=== PATIENT | male | born 2000 | race Hispanic/Latino ===

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

== ENCOUNTER 2022-05-16 19:13 | Emergency (ER) | payer SELFPAY ==
[2022-05-16] MEDS ORDERED: IBUPROFEN 400 MG TAB ONE (20:03)
--- NOTE | 2022-05-16 20:35 | RAD REPORT ---
EXAM DESCRIPTION: RAD - Chest Single View - 05/16/2022 8:26 pm CLINICAL HISTORY: CHEST PAIN Chest pain. COMPARISON: Chest Single View dated 05/13/2017; CHEST PA AND LAT 2 VIEW dated 11/02/2014 FINDINGS: Portable technique limits examination quality. The lungs are grossly clear. The heart is normal in size. No displaced fractures. IMPRESSION: No acute intrathoracic process suspected.
--- NOTE | 2022-05-16 20:52 | ER ---
Nurse's Notes [facility] Name: Justus Jenkins Age: 22 yrs Sex: Male : 2000 Arrival Date: 05/16/2022 Time: 19:23 Bed 2 Private MD: Diagnosis: Chest wall pain Presentation: 05/16 19:28 Chief complaint: Intermittent sharp substernal chest pain x 2 days. Pain does not hb radiate. Pain is worse with movement and with deep inspiration. Denies injury/SOB/nausea. Coronavirus screen: At this time, the client does not indicate any symptoms associated with coronavirus-19. Ebola Screen: No symptoms or risks identified at this time. Risk Assessment: Do you want to hurt yourself or someone else? Patient reports no desire to harm self or others. Onset of symptoms was May 15, 2022. 19:28 Method Of Arrival: Ambulatory hb 19:28 Acuity: EL 3 hb 21:05 Initial Sepsis Screen: Does the patient meet any 2 criteria? No. Patient's initial aa9 sepsis screen is negative. Does the patient have a suspected source of infection? No. Patient's initial sepsis screen is negative. Historical: - Allergies: 19:30 No Known Drug Allergies; hb - Home Meds: 19:30 None [Active]; hb - PMHx: 19:30 None; hb - PSHx: 19:30 None; hb - Immunization history:: Adult Immunizations up to date. - Social history:: Smoking status: Patient denies any tobacco usage or history of. Screenin:04 Abuse screen: Denies threats or abuse. Denies injuries from another. Nutritional as6 screening: No deficits noted. Tuberculosis screening: No symptoms or risk factors identified. Fall Risk None identified. Assessment: 20:03 General: Appears in no apparent distress. Behavior is calm, cooperative. Pain: as6 Complains of pain in mid-sternal area Pain currently is 9 out of 10 on a pain scale. Quality of pain is described as sharp, shooting, stabbing. Neuro: Level of Consciousness is awake, alert. Cardiovascular: Reports chest pain, Chest pain is described as Pain is 9 out of 10 on a pain scale. quality is sharp, stabbing. Respiratory: Respiratory effort is even, unlabored. Vital Signs: 19:28 BP 131 / 76; Pulse 70; Resp 16; Temp 98; Pulse Ox 100% on R/A; Weight 72.57 kg; Height hb 5 ft. 5 in. (165.10 cm); Pain 9/10; 20:00 BP 122 / 84; Pulse 74; Resp 16 S; Pulse Ox 99% on R/A; aa9 20:15 BP 117 / 90; Pulse 62; Resp 17 S; Pulse Ox 99% on R/A; aa9 20:30 BP 116 / 82; Pulse 66; Resp 16 S; Pulse Ox 98% on R/A; aa9 20:53 BP 134 / 83; Pulse 75; Resp 16 S; Pulse Ox 99% on R/A; aa9 19:28 Body Mass Index 26.63 (72.57 kg, 165.10 cm) hb ED Course: 19:23 Patient arrived in ED. mr 19:30 Triage completed. hb 19:30 Arm band placed on. hb 19:33 Alexandria Lam MD is Attending Physician. sd2 19:38 Archie Arenas, RN is Primary Nurse. as6 20:28 XRAY Chest (1 view) In Process Unspecified. EDMS 20:59 No provider procedures requiring assistance completed. Patient did not have IV access aa9 during this emergency room visit. 21:05 Patient has correct armband on for positive identification. Bed in low position. Side aa9 rails up X2. Adult w/ patient. Administered Medications: 20:02 Drug: Ibuprofen 800 mg Route: PO; as6 21:05 Follow up: Response: No adverse reaction aa9 Medication: 21:05 VIS not applicable for this client. aa9 Outcome: 20:51 Discharge ordered by . sd2 21:04 Discharged to home ambulatory, with family. aa9 21:04 Condition: stable 21:04 Discharge instructions given to patient, family, Instructed on discharge instructions, follow up and referral plans. Demonstrated understanding of instructions, follow-up care. 21:08 Patient left the ED. aa9 Signatures: Dispatcher [employer] [facility] WaliRosalindaterNunu, RN MENDY Archie Arenas, MENDY BROOKE as6 Alexandria Lam MD MD sd2 Cheli Davis RN RN aa9
--- NOTE | 2022-05-16 20:52 | EDPHYS ---
Physician Documentation [facility] Name: Justus Jenkins Age: 22 yrs Sex: Male : 2000 Arrival Date: 05/16/2022 Time: 19:23 Bed 2 Private MD: ED Physician Alexandria Lam HPI: 05/16 19:51 This 22 yrs old Male presents to ER via Ambulatory with complaints of Chest sd2 Pain. 19:51 22-year-old male with no known past medical history presents with chief complaint of sd2 midsternal chest pain that started yesterday. He reports it is worse when he leans over to pear picker things. He localizes it to a small circular area in his lower sternal area. He denies any shortness of breath, nausea, vomiting or diaphoresis. He has no known prior cardiac history. He reports the pain worsens when he stretches the area or takes a deep breath. No known recent travel or leg edema. No history of blood clots.. Historical: - Allergies: 19:30 No Known Drug Allergies; hb - Home Meds: 19:30 None [Active]; hb - PMHx: 19:30 None; hb - PSHx: 19:30 None; hb - Immunization history:: Adult Immunizations up to date. - Social history:: Smoking status: Patient denies any tobacco usage or history of. ROS: 19:52 Constitutional: Negative for fever, chills, and weight loss, Eyes: Negative for injury, sd2 pain, redness, and discharge, Cardiovascular: Positive for chest pain, Negative for palpitations, and edema, Respiratory: Negative for shortness of breath, cough, wheezing. Abdomen/GI: Negative for abdominal pain, nausea, vomiting, diarrhea. Back: Negative for injury and pain, MS/Extremity: Negative for injury and deformity, Skin: Negative for injury, rash, and discoloration, Neuro: Negative for headache, numbness and tingling. Exam: 19:52 Constitutional: This is a well developed, well nourished patient who is awake, alert, sd2 and in no acute distress. Head/Face: Normocephalic, atraumatic. Eyes: EOMI, normal conjunctiva bilaterally Chest/axilla: Normal chest wall appearance and motion. Tenderness to palpation at the L costosternal joints around ribs 7-9 with no associated crepitus Cardiovascular: Regular rate and rhythm with a normal S1 and S2. No gallops, murmurs, or rubs. 2+ distal pulses. Respiratory: Lungs have equal breath sounds bilaterally, clear to auscultation and percussion. No rales, rhonchi or wheezes noted. No increased work of breathing, no retractions or nasal flaring. Abdomen/GI: Soft, non-tender, with normal bowel sounds. No guarding or rebound. No evidence of tenderness throughout. Skin: Warm, dry with normal turgor. Normal color with no rashes, no lesions, and no evidence of cellulitis. MS/ Extremity: Pulses equal, no cyanosis. Neurovascular intact. Full, normal range of motion. Ambulatory without difficulty. Psych: Awake, alert, with orientation to person, place and time. Behavior, mood, and affect are within normal limits. 20:02 ECG was reviewed by the Attending Physician. NSR, rate 81, no STEMI criteria or ST-T sd2 wave changes Vital Signs: 19:28 BP 131 / 76; Pulse 70; Resp 16; Temp 98; Pulse Ox 100% on R/A; Weight 72.57 kg; Height hb 5 ft. 5 in. (165.10 cm); Pain 9/10; 20:00 BP 122 / 84; Pulse 74; Resp 16 S; Pulse Ox 99% on R/A; aa9 20:15 BP 117 / 90; Pulse 62; Resp 17 S; Pulse Ox 99% on R/A; aa9 20:30 BP 116 / 82; Pulse 66; Resp 16 S; Pulse Ox 98% on R/A; aa9 20:53 BP 134 / 83; Pulse 75; Resp 16 S; Pulse Ox 99% on R/A; aa9 19:28 Body Mass Index 26.63 (72.57 kg, 165.10 cm) hb MDM: 19:44 Patient medically screened. sd2 19:52 Differential diagnosis: Differential diagnosis includes but is not limited to: ACS, sd2 DVT/PE, pneumothorax, dissection, musculoskeletal, anxiety, anemia, electrolyte abnormality, pneumonia, CHF, COPD among others. Data reviewed: vital signs, nurses notes, EKG, radiologic studies. 20:49 Counseling: I had a detailed discussion with the patient and/or guardian regarding: the sd2 historical points, exam findings, and any diagnostic results supporting the discharge/admit diagnosis, radiology results, the need for outpatient follow up, to return to the emergency department if symptoms worsen or persist or if there are any questions or concerns that arise at home. Medical screen evaluation completed. EMTALA emergency medical condition absent. Special discussion: Based on the patient's history, exam, and Dx evaluation, there is no indication for emergent intervention or inpatient Tx. It is understood by the patient/guardian that if the Sx's persist or worsen they need to return immediately for re-evaluation. ED course: EKG with no abnormalities or ischemic changes. CXR with no acute process. VSS. No events noted on telemetry. Suspect MSK etiology or costochondritis based upon reproducible pinpoint area of patient's pain. Advised NSAIDs and continued supportive care. Pt verbalizes understanding of discharge plan and strict return precautions.. 05/16 19:36 Order name: XRAY Chest (1 view); Complete Time: 20:43 sd2 05/16 19:36 Order name: EKG - Nurse/Tech; Complete Time: 20:02 sd2 Administered Medications: 20:02 Drug: Ibuprofen 800 mg Route: PO; as6 21:05 Follow up: Response: No adverse reaction aa9 Disposition Summary: 05/16/22 20:51 Discharge Ordered Location: Home sd2 Problem: new sd2 Symptoms: have improved sd2 Condition: Stable sd2 Diagnosis - Chest wall pain sd2 Followup: sd2 - With: Private Physician - When: 2 - 3 days - Reason: Recheck today's complaints, Continuance of care, Re-evaluation by your physician Discharge Instructions: - Discharge Summary Sheet sd2 - Chest Wall Pain sd2 - Costochondritis sd2 Forms: - Medication Reconciliation Form sd2 - Thank You Letter sd2 - Antibiotic Education sd2 - Prescription Opioid Use sd2 Signatures: Dispatcher [employer] EDMS Nunu Nunez RN RN Archie Arenas RN RN as6 Alexandria Lam MD MD sd2 Cheli Davis RN aa9
[2022-05-18 06:42] VITALS: TEMP 98
[2022-05-18 06:51] VITALS: BP 134/83; O2SAT 99
--- NOTE | 2022-05-19 17:30 | EKG ---
Test Date: 2022-05-16 Test Time: 19:54:47 Engagement Specialist: MEASUREMENT RESULTS: Intervals: Rate: 81 ID: [id number] QRSD: 100 QT: 358 QTc: 415 [place]: P: 62 ID: [id number] QRS: 41 T: 42 INTERPRETIVE STATEMENTS: Normal sinus rhythm Normal ECG Compared to ECG 05/13/2017 02:09:43 Sinus arrhythmia no longer present Electronically Signed On 05-19-22 17:27:43 CDT by Cornel Cohen
== END 2022-05-16 21:08 | disposition home or self-care (01) ==
LOC: ER 19:13
DX: R07.89 Other chest pain (principal)
CPT/HCPCS: 71045; 93005; 99283

== ENCOUNTER 2024-03-31 09:58 | Emergency (ER) | payer OTHER, SELFPAY ==
[2024-03-31] MEDS ORDERED: ACETAMINOPHEN 500 MG TAB ONE (10:45)
[2024-03-31] MEDS ORDERED: CLINDAMYCIN 900MG/D5W 900 MG/50 ML IVPB IV ONE (10:46)
[2024-03-31] MEDS ORDERED: CEFTRIAXONE 2000 MG/VIAL ONE (10:46)
[2024-03-31] MEDS ORDERED: dexAMETHasone 10 MG/ML VIAL ONE (10:46)
[2024-03-31] MEDS ORDERED: NA CHLORIDE 0.9% 50 ML ONE (10:47)
[2024-03-31 10:55] LABS: Absolute Lymphocytes (CBC) 0.7 K/uL (0.7-4.9); Absolute Monocytes 1.6 K/uL (0.1-1.3); Absolute Neutrophil 20.7 K/uL (1.8-8.0); Basophils % 0.2 % (0-1.3); Hematocrit 47.5 % (39.6-49.0); Hemoglobin 15.7 g/dL (13.6-17.9); Lymphocytes % 2.8 % (15.3-44.8); MCHC 33.1 g/dL (32.0-36.0); MCV 87.6 fL (80-100); MPV 8.7 fL (7.6-11.3); Monocytes % 7.1 % (3.3-12.3); Neutrophils % 89.9 % (41.7-73.7); Platelets 194 thou/uL (152-406); RBC Red Blood Cell Count 5.43 M/uL (4.33-5.43); Red Cell Distribution Width 12.9 % (12.1-15.2)
--- NOTE | 2024-03-31 11:02 | RAD REPORT ---
EXAM DESCRIPTION: CT - Soft Tissue Neck W/Contr CLINICAL HISTORY: PAIN COMPARISON: No comparisons TECHNIQUE All CT scans are performed using dose optimization technique as appropriate and may includ e automated exposure control or mA/KV adjustment according to patient size. FINDINGS: Enlarged bilateral palatine tonsils with striations and one 12 mm fluid collection at the left tonsillar fossa. No significant airway narrowing. Fossa Rosenmller are normal. Parapharyngeal fat triangles are symmetric. Tongue base structures are normal. Epiglottis and aryepiglottic folds are normal. Piriform sinuses are well aerated. The vocal cords are normal in appearance. Salivary glands are normal in appearance. Upper lung abel are clear. Included intracranial contents are unremarkable. Bilateral cervical chain lymphadenopathy is present. This is likely reactive in a patient of this age . IMPRESSION: Tonsillitis with small 12 mm left tonsillar abscess and bilateral phlegmon. Patent airwa y. Enlarged cervical chain lymph nodes which are likely reactive.
[2024-03-31 11:25] LABS: Albumin 4.1 g/dL (3.4-5.0); Anion Gap 12.3 mEq/L (5.0-15.0); Bilirubin Total 1.1 mg/dL (0.2-1.0); Globulin 4.2 g/dL (2.3-3.5); Potassium 3.3 mEq/L (3.5-5.1); Protein, Total 8.3 g/dL (6.4-8.2)
[2024-03-31 11:46] LABS: SARS-CoV-2 Antigen CONTROL BLUE LINE VIS/BG OK; SARS-CoV-2 Antigen Rapid Res Negative (Negative)
[2024-03-31 12:03] LABS: Monoscreen POS (NEG)
[2024-03-31 12:24] LABS: Blood Morphology Comment NOT SEEN (NOT SEEN); Platelet Estimate ADEQ; White Blood Cell Scan OK (OK)
[2024-03-31] MEDS ORDERED: ONDANSETRON 4 MG/2 ML VIAL ONE (12:32)
[2024-03-31] MEDS ORDERED: FENTANYL CITR 100 MCG/2 ML ONE (12:33)
--- NOTE | 2024-03-31 13:13 | EDPHYS ---
Physician Documentation [facility] Name: Justus Jenkins Age: 24 yrs Sex: Male : 2000 Arrival Date: 03/31/2024 Time: 09:58 Bed 17 Private MD: ED Physician Sumanth Higuera HPI: 03/31 10:36 This 24 yrs old Male presents to ER via Ambulatory with complaints of Ear pepe Pain, Sore Throat. Historical: - Allergies: 10: No Known Allergies; hb - Home Meds: 10: None [Active]; hb - PMHx: 10: None; hb - PSHx: 10:09 None; hb - Immunization history:: Adult Immunizations up to date. - Infectious Disease History:: Denies. - Social history:: Smoking status: Patient reports the use of cigarette tobacco products. ROS: 10:49 Constitutional: Negative for fever, chills, and weight loss, Eyes: Negative for injury, pepe pain, redness, and discharge, Neck: Negative for injury, pain, and swelling, Cardiovascular: Negative for chest pain, palpitations, and edema, Respiratory: Negative for shortness of breath, cough, wheezing, and pleuritic chest pain, Abdomen/GI: Negative for abdominal pain, nausea, vomiting, diarrhea, and constipation, Back: Negative for injury and pain, : Negative for injury, bleeding, discharge, and swelling, MS/Extremity: Negative for injury and deformity, Skin: Negative for injury, rash, and discoloration, Neuro: Negative for headache, weakness, numbness, tingling, and seizure, Psych: Negative for depression, anxiety, suicide ideation, homicidal ideation, and hallucinations, Allergy/Immunology: Negative for hives, rash, and allergies, Endocrine: Negative for neck swelling, polydipsia, polyuria, polyphagia, and marked weight changes, Hematologic/Lymphatic: Negative for swollen nodes, abnormal bleeding, and unusual bruising, 10:49 ENT: Positive for ear pain, rhinorrhea, sore throat, Exam: 10:49 Constitutional: This is a well developed, well nourished patient who is awake, alert, pepe and in no acute distress. Head/Face: Normocephalic, atraumatic. Eyes: Pupils equal round and reactive to light, extra-ocular motions intact. Lids and lashes normal. Conjunctiva and sclera are non-icteric and not injected. Cornea within normal limits. Periorbital areas with no swelling, redness, or edema. Neck: Trachea midline, no thyromegaly or masses palpated, and no cervical lymphadenopathy. Supple, full range of motion without nuchal rigidity, or vertebral point tenderness. No Meningismus. Chest/axilla: Normal chest wall appearance and motion. Nontender with no deformity. No lesions are appreciated. Cardiovascular: Regular rate and rhythm with a normal S1 and S2. No gallops, murmurs, or rubs. Normal PMI, no JVD. No pulse deficits. Respiratory: Lungs have equal breath sounds bilaterally, clear to auscultation and percussion. No rales, rhonchi or wheezes noted. No increased work of breathing, no retractions or nasal flaring. Abdomen/GI: Soft, non-tender, with normal bowel sounds. No distension or tympany. No guarding or rebound. No evidence of tenderness throughout. Back: No spinal tenderness. No costovertebral tenderness. Full range of motion. Male : Normal genitalia with no discharge or lesions. Skin: Warm, dry with normal turgor. Normal color with no rashes, no lesions, and no evidence of cellulitis. MS/ Extremity: Pulses equal, no cyanosis. Neurovascular intact. Full, normal range of motion. Neuro: Awake and alert, GCS 15, oriented to person, place, time, and situation. Cranial nerves II-XII grossly intact. Motor strength 5/5 in all extremities. Sensory grossly intact. Cerebellar exam normal. Normal gait. Psych: Awake, alert, with orientation to person, place and time. Behavior, mood, and affect are within normal limits. 10:49 ENT: Posterior pharynx: Airway: no evidence of obstruction, Tonsils: bilaterally enlarged, with erythema, with exudate, Uvula: swelling, that is mild, erythema, that is mild, exudate, that is mild, 11:45 Head/face: Noted is mild trismus noted on exam. pepe Vital Signs: 10:07 BP 147 / 85; Pulse 103; Resp 16; Temp 99.5(O); Pulse Ox 100% on R/A; Weight 72.57 kg; hb Height 5 ft. 6 in. ; Pain 8/10; 12:47 BP 130 / 81; Pulse 91; Resp 17; Pulse Ox 98% on R/A; rs5 13:40 BP 127 / 77; Pulse 80; Resp 17; Pulse Ox 98% on R/A; rs5 10:07 Body Mass Index 25.82 (72.57 kg, 167.64 cm) hb 10:07 Pain Scale: Adult hb MDM: 10:02 Patient medically screened. [facility] 10:52 Differential diagnosis: group A strep tonsillitis, influenza, laryngitis, lymphoma, pepe mononucleosis, peritonsillar abscess neisseria gonorrheoeae pharangitis, radiation tonsillitis, upper respiratory infection, uvulitis, viral syndrome. Data reviewed: vital signs, nurses notes, lab test result(s), radiologic studies, plain films. Consideration of Admission/Observation Escalation of care including admission/observation considered. I considered the following discharge prescriptions or medication management in the emergency department Medications were administered in the Emergency Department. See MAR. Independent interpretation of the following test(s) in the Emergency Department CT Scan: My interpretation is ct soft tissue neck. Historians other than the Patient: pt well informed. Care significantly affected by the following chronic conditions: neg. Counseling: I had a detailed discussion with the patient and/or guardian regarding the historical points, exam findings, and any diagnostic results supporting the discharge/admit diagnosis, lab results, radiology results, the need for outpatient follow up, for definitive care, an ENT specialist, a family practitioner. 03/31 10:25 Order name: Strep [facility] 03/31 10:25 Order name: CBC with Diff; Complete Time: 13:10 [facility] 03/31 10:25 Order name: Comprehensive Metabolic Panel; Complete Time: 11:38 [facility] 03/31 10:25 Order name: Flu; Complete Time: 12:07 [facility] 03/31 10:25 Order name: [place] Screen Profile; Complete Time: 12:07 [facility] 03/31 10:25 Order name: SARS RAPID; Complete Time: 12:07 [facility] 03/31 11:01 Order name: CBC Smear Scan; Complete Time: 13:10 [facility] 03/31 11:51 Order name: Throat Culture [facility] 03/31 10:25 Order name: CT Soft Tissue Neck W/contr; Complete Time: 11:38 [facility] 03/31 13:11 Order name: PO challenge: gatorade; Complete Time: 13:22 [facility] Administered Medications: 10:59 Drug: Decadron - Dexamethasone IVP 10 mg IVP once Route: IVP; Site: right antecubital; rs5 11:20 Follow up: Response: No adverse reaction rs5 10:59 Drug: Acetaminophen PO 1000 mg PO once Route: PO; rs5 12:01 Follow up: Response: No adverse reaction; Pain is decreased rs5 11:00 Drug: Rocephin IV 2 grams IV at per protocol once; Given slow IV push per pharmarcy rs5 instructions Route: IV; Rate: per protocol; Site: right antecubital; 11:20 Follow up: Response: No adverse reaction rs5 11:00 Drug: Clindamycin IVPB 900 mg IVPB once over 30 mins; (mix in 50 mL) Route: IVPB; rs5 Infused Over: 30 mins; Site: right antecubital; 11:20 Follow up: Response: No adverse reaction rs5 12:40 Drug: Ondansetron IVP 4 mg IVP once; over 2 minutes Route: IVP; Site: right antecubital;rs5 12:48 Follow up: Response: No adverse reaction rs5 12:41 Drug: fentaNYL (PF) IVP 50 mcg IVP once Route: IVP; Site: right antecubital; rs5 12:48 Follow up: Response: No adverse reaction; Pain is decreased rs5 13:11 Drug: Potassium PO Effervescent Tablet 25 mEq PO once; dissolve in 4 ounces of water or rs5 juice Route: PO; 13:11 Drug: Clindamycin PO 300 mg PO once Route: PO; rs5 Disposition Summary: 03/31/24 13:12 Discharge Ordered Notes: Location: Home pepe Problem: new pepe Symptoms: have improved pepe Condition: Stable pepe Diagnosis - Acute tonsillitis, unspecified pepe - Fever, unspecified pepe - Peritonsillar abscess pepe - Infectious mononucleosis, unspecified with other complication pepe - Hypokalemia pepe - Elevated white blood cell count pepe Followup: pepe - With: Private Physician - When: 2 - 3 days - Reason: Recheck today's complaints, Continuance of care, Re-evaluation by your physician Followup: pepe - With: Alexandria Brewer MD - When: 2 - 3 days - Reason: Recheck today's complaints, Continuance of care, Re-evaluation by your physician Discharge Instructions: - Discharge Summary Sheet pepe - Potassium Content of Foods pepe - Fever, Adult pepe - Infectious Mononucleosis pepe - Peritonsillar Abscess pepe - Tonsillitis pepe - Tonsillitis, [id number] pepe - Peritonsillar Abscess, [id number] pepe - Peritonsillar Cellulitis pepe - Hypokalemia pepe - Mononucleosis Rapid Test [facility] Forms: - Medication Reconciliation Form pepe - Antibiotic Education pepe - Prescription Opioid Use pepe - Patient Portal Instructions pepe - Leadership Thank You Letter [facility] - Work release form ld1 Prescriptions: - dexamethasone 4 mg Oral tablet - take 1 tablet ORAL route every 12 hours; 4 tablet; Refills: 0, Product [facility] Selection Permitted - Clindamycin HCl 300 mg Oral Capsule - take 1 capsule ORAL route every 6 hours for 10 days; 40 capsule; Refills: 0, [facility] Product Selection Permitted - Ibuprofen 600 mg Oral Tablet - take 1 tablet ORAL route every 6 hours As needed take with food; 30 tablet; [facility] Refills: 0, Product Selection Permitted Signatures: Dispatcher [employer] EDSumanth Ott MD MD [facility] Nunu Nunez, MENDY RN Drew Meyers RN RN rs5 Corrections: (The following items were deleted from the chart) 12: 12:18 OSMOLALITY, SERUM+SC.LAB.BRZ ordered. EDMS EDMS 12: 12:18 URINE SODIUM RANDOM+CHEM UR.LAB.BRZ ordered. EDMS EDMS 12: 12:18 Osmolality, Urine ordered. EDMS EDMS
--- NOTE | 2024-03-31 13:13 | ER ---
Nurse's Notes [facility] Name: Justus Jenkins Age: 24 yrs Sex: Male : 2000 Arrival Date: 03/31/2024 Time: 09:58 Bed 17 Private MD: Diagnosis: Acute tonsillitis, unspecified;Fever, unspecified;Peritonsillar abscess;Infectious mononucleosis, unspecified with other complication;Hypokalemia;Elevated white blood cell count Presentation: 03/31 10:07 Chief complaint: Left ear pain and sore throat x 2 days. Coronavirus screen: At this hb time, the client does not indicate any symptoms associated with coronavirus-19. Ebola Screen: No symptoms or risks identified at this time. Initial Sepsis Screen: Does the patient meet any 2 criteria? No. Patient's initial sepsis screen is negative. Does the patient have a suspected source of infection? No. Patient's initial sepsis screen is negative. Risk Assessment: Do you want to hurt yourself or someone else? Patient reports no desire to harm self or others. Onset of symptoms was March 30, 2024. 10:07 Method Of Arrival: Ambulatory hb 10:07 Acuity: EL 4 hb Triage Assessment: 10:08 General: Appears in no apparent distress. Behavior is calm, cooperative. Pain: Pain hb currently is 8 out of 10 on a pain scale. EENT: Reports sore throat and left ear pain. Neuro: Level of Consciousness is awake, alert, obeys commands, Oriented to person, place, time, situation. Cardiovascular: Patient's skin is warm and dry. Respiratory: Respiratory effort is even, unlabored, Respiratory pattern is regular, symmetrical. Historical: - Allergies: 10:09 No Known Allergies; hb - Home Meds: 10:09 None [Active]; hb - PMHx: 10:09 None; hb - PSHx: 10:09 None; hb - Immunization history:: Adult Immunizations up to date. - Infectious Disease History:: Denies. - Social history:: Smoking status: Patient reports the use of cigarette tobacco products. Screenin:05 [facility] ED Fall Risk Assessment (Adult) History of falling in the last 3 months, rs5 including since admission No falls in past 3 months (0 pts) Confusion or Disorientation No (0 pts) Intoxicated or Sedated No (0 pts) Impaired Gait No (0 pts) Mobility Assist Device Used No (0 pt) Altered Elimination No (0 pt) Score/Fall Risk Level 0 - 2 = Low Risk Oriented to surroundings, Maintained a safe environment. Abuse screen: Denies threats or abuse. Nutritional screening: No deficits noted. Tuberculosis screening: No symptoms or risk factors identified. Assessment: 10:03 General: Appears in no apparent distress. uncomfortable, Behavior is calm, cooperative. rs5 Pain: Complains of pain in left ear pain and throat Pain currently is 5 out of 10 on a pain scale. Quality of pain is described as aching, Is continuous. Neuro: Level of Consciousness is awake, alert, obeys commands, Oriented to person, place, time, situation. Cardiovascular: Patient's skin is warm and dry. Respiratory: Airway is patent Respiratory effort is even, unlabored, Respiratory pattern is regular, symmetrical. GI: Abdomen is round non-distended, Abd is soft and non tender X 4 quads. : No signs and/or symptoms were reported regarding the genitourinary system. EENT: redness noted to back of throat. Derm: Skin is intact, Skin is dry, Skin is normal. Musculoskeletal: Range of motion: intact in all extremities. 11:00 Reassessment: Patient and/or family updated on plan of care and expected duration. Pain rs5 level reassessed. Patient is alert, oriented x 3, equal unlabored respirations, skin warm/dry/pink. 12:05 Reassessment: Patient and/or family updated on plan of care and expected duration. Pain rs5 level reassessed. Patient is alert, oriented x 3, equal unlabored respirations, skin warm/dry/pink. 12:47 Reassessment: No changes from previously documented assessment. rs5 13:31 Reassessment: Patient and/or family updated on plan of care and expected duration. Pain rs5 level reassessed. Patient is alert, oriented x 3, equal unlabored respirations, skin warm/dry/pink. Vital Signs: 10:07 BP 147 / 85; Pulse 103; Resp 16; Temp 99.5(O); Pulse Ox 100% on R/A; Weight 72.57 kg; hb Height 5 ft. 6 in. ; Pain 8/10; 12:47 BP 130 / 81; Pulse 91; Resp 17; Pulse Ox 98% on R/A; rs5 13:40 BP 127 / 77; Pulse 80; Resp 17; Pulse Ox 98% on R/A; rs5 10:07 Body Mass Index 25.82 (72.57 kg, 167.64 cm) hb 10:07 Pain Scale: Adult hb ED Course: 10:01 Patient arrived in ED. mr 10:02 Sumanth Higuera MD is Attending Physician. pepe 10:05 Patient has correct armband on for positive identification. Placed in gown. Bed in low rs5 position. Call light in reach. Side rails up X2. 10:05 No provider procedures requiring assistance completed. rs5 10:07 Inserted saline lock: 20 gauge in right antecubital area, using aseptic technique. rs5 Blood collected. Flushed with 10 mL NS. 10:09 Triage completed. hb 10:12 Arm band placed on. hb 10:16 Drew Meyers, RN is Primary Nurse. rs5 10:43 CT Soft Tissue Neck W/contr In Process Unspecified. EDMS 13:11 Alexandria Brewer MD is Referral Physician. pepe 13:42 IV discontinued, intact, bleeding controlled, No redness/swelling at site. Pressure rs5 dressing applied. Administered Medications: 10:59 Drug: Decadron - Dexamethasone IVP 10 mg IVP once Route: IVP; Site: right antecubital; rs5 11:20 Follow up: Response: No adverse reaction rs5 10:59 Drug: Acetaminophen PO 1000 mg PO once Route: PO; rs5 12:01 Follow up: Response: No adverse reaction; Pain is decreased rs5 11:00 Drug: Rocephin IV 2 grams IV at per protocol once; Given slow IV push per pharmarcy rs5 instructions Route: IV; Rate: per protocol; Site: right antecubital; 11:20 Follow up: Response: No adverse reaction rs5 11:00 Drug: Clindamycin IVPB 900 mg IVPB once over 30 mins; (mix in 50 mL) Route: IVPB; rs5 Infused Over: 30 mins; Site: right antecubital; 11:20 Follow up: Response: No adverse reaction rs5 12:40 Drug: Ondansetron IVP 4 mg IVP once; over 2 minutes Route: IVP; Site: right antecubital;rs5 12:48 Follow up: Response: No adverse reaction rs5 12:41 Drug: fentaNYL (PF) IVP 50 mcg IVP once Route: IVP; Site: right antecubital; rs5 12:48 Follow up: Response: No adverse reaction; Pain is decreased rs5 13:11 Drug: Potassium PO Effervescent Tablet 25 mEq PO once; dissolve in 4 ounces of water or rs5 juice Route: PO; 13:11 Drug: Clindamycin PO 300 mg PO once Route: PO; rs5 Medication: 11:01 VIS not applicable for this client. rs5 Outcome: 13:12 Discharge ordered by . pepe 13:42 Discharged to home ambulatory, rs5 13:42 Condition: stable rs5 13:42 Discharge instructions given to patient, family, Instructed on discharge instructions, follow up and referral plans. medication usage, Demonstrated understanding of instructions, follow-up care, medications, Prescriptions given X 3, 13:45 Patient left the ED. rs5 Signatures: Dispatcher [employer] EDMS Sumanth Higuera MD MD cha Rivera, Mary, [facility] mr Nunu Nunez, MENDY BROOKE Drew Meyers RN RN rs5 Corrections: (The following items were deleted from the chart) 11:00 10:03 Pain: Complains of pain in ear pain and throat Pain currently is 5 out of 10 on a rs5 pain scale. Quality of pain is described as aching, Is continuous, rs5 14:04 14:04 BP 127 / 77; Pulse 80bpm; Resp 17bpm; Pulse Ox 98% RA; rs5 rs5
[2024-03-31] MEDS ORDERED: POTASSIUM 25 MEQ EFFERV TAB ONE (13:25)
[2024-03-31 13:54] VITALS: TEMP 99.5
[2024-03-31 13:59] VITALS: BP 130/81; O2SAT 98
--- NOTE | 2024-03-31 17:43 | CON ---
Date of Consultation: 03/31/2024 Reason For Consultation: Sore throat and possible abscess. History Of Present Illness: The patient is a 24-year-old -appearing male, who presented to [facility] emergency room with several days of sore throat with mild left ear pain. Yesterday, he took a dos e of leftover antibiotic from a family member yesterday and had some mild improvement, but woke up th is morning with worsening sore throat. The patient was evaluated by the emergency room with findings including leukocytosis of 23,000, a CT scan demonstrating phlegmon with a possible 1.2 cm hypodensit y near the base of the left tonsil or left basal tongue and received IV antibiotics and steroids as w ell bolus of IV fluids. The patient was also noted to have a negative flu test, negative COVID test, negative strep test, but had a positive monospot. The patient is otherwise in good general health w ithout significant risk factors, and no specific history for recurrent tonsillitis issues. Physical Examination: The patient is in no acute distress. He is tolerating secretions without visible difficulty. He vázquez s not have a muffled or hot potato voice. His respirations are quiet and nonlabored. His oral cavit y shows bilateral tonsillar edema and erythema with multiple areas of white exudate, but no significa nt bulge of the soft palate. The base of tongue is difficult to directly visualize and the patient h as very mild degree of trismus or pain when opening the mouth. No clinically visible abscess is note d on his physical exam. Review Of Data: I personally reviewed the CT findings as well as the patient's laboratory studies an d microbiology/infectious disease testing. Assessment: Tonsillitis with possible bacterial component and phlegmon versus small abscess on the l eft oropharynx. Recommendation: Overall, the patient is relatively nontoxic appearing and there may be some viral ED D component to his current symptoms. He does not appear to be in any degree of respiratory distress and I am in favor of outpatient management with oral antibiotics and steroids with close followup if he is not improving. We discussed the option of overnight observation for continued hydration and us e of additional IV antibiotics and steroids, however, the patient has some social responsibilities at home with his child who is currently in the care of the child's grandmother and he is motivated to a void inpatient treatment if feasible. Care coordination and direct communication were performed with the emergency room staff in regard to this patient's case including disposition. They are agreeable for outpatient management as well and provide discharge prescriptions as well as additional precauti ons in regard to worsening of the symptoms. ROMEO/FRANK Voice ID: [id number] Report ID: [id number]
== END 2024-03-31 13:45 | disposition home or self-care (01) ==
LOC: ER 09:58
DX: J03.90 Acute tonsillitis, unspecified (principal); B27.99 Infectious mononucleosis, unspecified with other complication; E87.6 Hypokalemia; D72.829 Elevated white blood cell count, unspecified; Z11.52 Encounter for screening for COVID-19; Z72.0 Tobacco use
CPT/HCPCS: 36415; 70491; 80053; 85025; 86308; 87070; 87081; 87804; 87811; 96374; 96375; 99284; J0696; J1100; J2405; J3010; Q9967